=== PATIENT | female | born 1975 | race African-American/Black ===

== ENCOUNTER 2017-09-21 12:15 | Emergency (ER) | payer OTHER ==
[~2017-09-21] VITALS: Ht 170.2 cm; Wt 89.3 kg
[2017-09-21 12:22] VITALS: BP 120/70; Ht 170.2 cm; Wt 89.3 kg
[2017-09-21 14:13] LABS: BASOPHIL % 0.5 % (0-2); PLATELET COUNT 260 x10^3mcL (130-400); RED CELL DISTRIBUTION WIDTH 14.4 % (11.5-14.5)
[2017-09-21 14:23] LABS: CALCIUM 8.7 mg/dL (8.5-10.1); CARBON DIOXIDE 29.5 mmol/L (21-32); CHLORIDE SERUM 103 mmol/L (98-107); CREATININE SERUM 0.8 mg/dL (0.6-1.0); GFR1 > 60 mL/min; GLUCOSE SERUM 101 mg/dL (74-106); POTASSIUM SERUM 4.1 mmol/L (3.5-5.1); SODIUM SERUM 140 mmol/L (136-145)
[2017-09-21 14:28] LABS: ALBUMIN 3.6 g/dL (3.4-5.0); ALKALINE PHOSPHATASE 50 U/L (46-116); ALT/SGPT 23 U/L (14-59); AST/SGOT 13 U/L (15-37); BILIRUBIN TOTAL 0.3 mg/dL (0.20-1.00); CHOLESTEROL 157 mg/dL (<200); CHOLESTEROL/HDL RATIO 3.4; HDL CHOLESTEROL 46 mg/dL (40-60); LIPASE 96 IU/L (73-393); TOTAL PROTEIN, SERUM 7.2 g/dL (6.4-8.2); TRIGLYCERIDES 105 mg/dL (<150)
[2017-09-21 14:35] LABS: T3 TOTAL 0.79 ng/mL
[2017-09-21 15:04] LABS: FREE T4 1.03 ng/dL (0.76-1.46); FREE THYROXINE INDEX 2.3 ug/dL (1.4-4.5); T4(THYROXINE) 7.1 ug/dL (4.7-13.3)
== END 2017-09-21 15:14 | disposition home or self-care (01) ==
LOC: ED 12:15
PROVIDERS: Specialist
DX: M94.0 Chondrocostal junction syndrome [Tietze] (principal); Z88.0 Allergy status to penicillin; Z88.8 Allergy status to other drugs, medicaments and biological substances
CPT/HCPCS: 36415; 83880; 84439; Q0092